=== PATIENT | female | born 2000 | race Caucasian/White ===

== ENCOUNTER 2023-01-09 17:24 | Observation (INO) | payer OTHER ==
[~2023-01-09] VITALS: Ht 162.6 cm; Wt 74.5 kg
[2023-01-09 18:00] LABS: COLLECTION METHOD CLEAN CATCH
[2023-01-09 18:03] LABS: BASO % 0.4 % (0.0-2.0); EOS % 0.1 % (0.0-4.0); GRAN # 5.5 K/mm3 (1.4-6.5); GRAN % 65.5 % (42.2-75.2); HEMOGLOBIN 11.6 g/dl (12.5-16.0); LYMPH # 2.4 K/mm3 (1.2-3.4); LYMPH % 28.3 % (20.0-51.0); MEAN CELL VOLUME 91 fl (80.0-100.0); MEAN CORPUSCULAR HEMOGLOBIN 30 pg (27-31); MEAN CORPUSCULAR HGB CONC 33 g/dl (33.0-37.0); MEAN PLATELET VOLUME 10.3 fl (7.4-10.4); MONO # 0.5 K/mm3 (0.1-0.6); MONO % 5.6 % (1.7-9.3); PLATELET COUNT 283 K/mm3 (130-400); RED BLOOD COUNT 3.82 M/mm3 (4.10-5.30); REDCELL DISTRIBUTION WIDTH-CV 12.6 % (11.5-14.5)
[2023-01-09 18:04] LABS: HEMATOCRIT 34.7 % (37.0-47.0)
[2023-01-09 18:07] LABS: URINE COLOR Yellow (YELLOW)
[2023-01-09 18:08] LABS: URINE APPEARANCE Cloudy (CLEAR/HAZY)
[2023-01-09 18:09] LABS: URINE BLOOD 3+ (NEGATIVE); URINE GLUCOSE Negative (NEGATIVE); URINE KETONE 2+ (NEGATIVE); URINE NITRATE Negative (NEGATIVE); URINE PROTEIN(semi-quant) TRACE (NEGATIVE); URINE UROBILINOGEN 0.2 E.U/dL (0.2-1.0)
[2023-01-09 18:27] LABS: ALBUMIN 4.2 gm/dL (3.5-5.0); BILIRUBIN,TOTAL 0.5 mg/dL (0.2-1.2); CALCIUM 9.4 mg/dL (8.4-10.2); CREATININE, serum 0.71 mg/dL (0.57-1.11); POTASSIUM 3.5 mmol/L (3.5-4.5); TOTAL PROTEIN 7.4 gm/dL (6.2-8.1)
[2023-01-09 18:46] LABS: MUCOUS Present (NOT PRESENT); URINE BACTERIA Moderate /hpf (NONE SEEN); URINE RBC >50 /hpf (0-2)
[2023-01-09 21:16] VITALS: BP 122/61; PULSE 99; TEMP 98.4
--- NOTE | 2023-01-09 21:26 | NUR ---
THE PATIENT ARRIVED VIA WC CHAIR ACCOMPANIED BY ED STAFF. THE PATIENT IS ALERT AND ORIENTED. VITAL SIGNS STABLE. THE PATIENT DENIES PAIN AT THIS TIME. THE PATIENT WAS ORIENTED TO THE ROOM AND BED CONTROLS. CALL LIGHT WITHIN REACH. BED IN LOW POSITION.
[2023-01-09] MEDS ORDERED: ATARAX 25MG25 MG/TAB PO (21:40)
[2023-01-09] MEDS ORDERED: ISIBLOOM 28 DA1 EACH PO (21:42)
[2023-01-10] VITALS: BP 111/58; PULSE 92; TEMP 99
[2023-01-10 03:33] VITALS: BP 118/56; PULSE 61; TEMP 98.7
[2023-01-10 07:09] VITALS: BP 116/61; PULSE 80; TEMP 98.7
--- NOTE | 2023-01-10 08:21 | NUR ---
Shift assessment is done this morning. Patient is resting on bed. Denies any pain or discomfort.
--- NOTE | 2023-01-10 08:53 | NUR ---
Patient passed the obstructive kidney stone on her own. Kidney stone is sent to lab this morning. Patient is discharged to go home. No pain at this time. IV discontinued. Patient is escorted to her private vehicle by [facility].
== END 2023-01-10 08:48 | disposition home or self-care (01) ==
LOC: COL.ER 17:24 → MEDICAL 19:32
PROVIDERS: Nurse Practitioner Primary Care; ADMIT Urology
DX: N20.1 Calculus of ureter (principal)
CPT/HCPCS: G0378; J0360; J0690; J1100; J1885; J2405; J2704; J3010; J7030; Q9967